=== PATIENT | male | born 1940 | race African-American/Black ===

== ENCOUNTER 2021-02-19 09:24 | Outpatient (CLI) | payer MEDICARE | END 2021-02-19 09:25 | disposition home or self-care (01) | LOC: BICCT 09:24 | PROVIDERS: ATTEND Internal Medicine Cardiovascular Disease | DX: R91.8 Other nonspecific abnormal finding of lung field (principal); I77.810 Thoracic aortic ectasia | CPT/HCPCS: 71250 ==

== ENCOUNTER 2022-01-07 09:34 | Outpatient (CLI) | payer MEDICARE | END 2022-01-07 09:35 | disposition home or self-care (01) | LOC: BICCT 09:34 | PROVIDERS: ATTEND Internal Medicine Critical Care Medicine | DX: R91.8 Other nonspecific abnormal finding of lung field (principal) | CPT/HCPCS: 71250 ==

== ENCOUNTER 2022-03-05 08:09 | Outpatient (CLI) | payer MEDICARE ==
[2022-03-05] MEDS ORDERED: Iopamidol 370 76% 100 ML VIAL ONE (11:48)
== END 2022-03-05 08:10 | disposition home or self-care (01) ==
LOC: CT 08:09
PROVIDERS: ATTEND Internal Medicine Cardiovascular Disease
DX: I10 Essential (primary) hypertension (principal); I77.810 Thoracic aortic ectasia
CPT/HCPCS: 71275; 82565; Q9967

== ENCOUNTER 2023-01-07 09:08 | Outpatient (CLI) | payer MEDICARE | END 2023-01-07 09:09 | disposition home or self-care (01) | LOC: BICCT 09:08 | PROVIDERS: ATTEND Internal Medicine Critical Care Medicine | DX: R91.1 Solitary pulmonary nodule (principal); I71.21 Aneurysm of the ascending aorta, without rupture; J98.4 Other disorders of lung | CPT/HCPCS: 71250 ==

== ENCOUNTER 2024-03-25 12:12 | Outpatient (CLI) | payer MEDICARE ==
[2024-03-25] MEDS ORDERED: Iopamidol 370 76% 100 ML VIAL ONE (12:25)
== END 2024-03-25 12:13 | disposition home or self-care (01) ==
LOC: CT 12:12 → BICCT 12:13
PROVIDERS: ATTEND Internal Medicine Cardiovascular Disease
DX: E11.9 Type 2 diabetes mellitus without complications (principal); R91.1 Solitary pulmonary nodule; I77.810 Thoracic aortic ectasia
CPT/HCPCS: 36415; 71275; 82565